=== PATIENT | male | born 1945 | race Caucasian/White ===

== ENCOUNTER 2017-12-13 04:18 | Emergency (ER) | payer OTHER ==
[~2017-12-13] VITALS: Ht 182.9 cm; Wt 79.4 kg
[2017-12-13] MEDS ORDERED: KEFLEX500 MG PO (04:44)
[2017-12-13 04:58] VITALS: BP 151/93
== END 2017-12-13 05:12 | disposition home or self-care (01) ==
LOC: EME 04:18
DX: L03.115 Cellulitis of right lower limb (principal); S80.811A Abrasion, right lower leg, initial encounter; W28.XXXA Contact with powered lawn mower, initial encounter; I10 Essential (primary) hypertension; Z96.641 Presence of right artificial hip joint
CPT/HCPCS: 99281; 99283